=== PATIENT | male | born 1995 | race Caucasian/White ===

== ENCOUNTER 2017-06-06 10:11 | Emergency (ER) | payer OTHER ==
[~2017-06-06] VITALS: Ht 177.8 cm; Wt 89.8 kg
[2017-06-06 11:06] LABS: Albumin 4.4 g/dL (3.4-5.0); BUN/Creatinine Ratio 16.8; Calcium 9.4 mg/dL (8.5-10.1); Potassium 4.3 mmol/L (3.5-5.1)
[2017-06-06 11:09] LABS: Bilirubin, Total 1.2 mg/dL (0.2-1.0); Total Protein 8.2 g/dL (6.4-8.2)
[2017-06-06 11:17] LABS: Urine Bacteria NONE SEEN /hpf (None Seen); Urine Blood Negative /uL (Negative); Urine Mucus FEW (None Seen); Urine Specific Gravity 1.032 (1.001-1.035); Urine WBC 1 /hpf (0 - 3)
[2017-06-06 11:20] LABS: Alcohol, Urine < 3.0 mg/dL (0-5); Amphetamine Screen, Urine NEGATIVE (NEGATIVE); Barbiturate Scree,Urine NEGATIVE (NEGATIVE); Benzodiazephine Screen, Urine NEGATIVE (NEGATIVE); Cannabinoid Screen, Urine NEGATIVE (NEGATIVE); Cocaine Screen, Urine NEGATIVE (NEGATIVE); Opiate Scree,Urine NEGATIVE (NEGATIVE); Phencyclidine Screen, Urine NEGATIVE (NEGATIVE)
[2017-06-06 12:18] LABS: Basophils # (auto) 0 uL; Basophils % (auto) 0.4 % (0.0-2.0); Eosinophils # (auto) 0 uL; Eosinophils % (auto) 0.1 % (0.0-7.0); Hematocrit 48.2 % (41.0-53.0); Lymphocytes # (auto) 1.3 uL; Lymphocytes % (auto) 11.8 % (10.0-50.0); Mean Corpuscular Hemoglobin 29.7 pg (28.0-32.0); Mean Corpuscular Hgb Conc. 33.2 g/dL (32.0-36.0); Mean Corpuscular Volume 89.5 fL (80.0-100.0); Monocytes # (auto) 0.8 uL; Monocytes % (auto) 7.3 % (0.0-12.0); Neutrophils # (auto) 9.2 uL; Neutrophils % (auto) 80.4 % (37.0-80.0); Nucleated Red Blood Cells % 0.1 %; Platelet Count (auto) 255 10^3/uL (140-450); Red Blood Cells 5.38 10^6/uL (4.5-5.90); Red Cell Distribution Width 12.6 % (11.8-14.3); White Blood Cell 11.5 10^3/uL (4.4-10.8)
[2017-06-06 12:26] VITALS: BP 126/75
[2017-06-06] MEDS ORDERED: KETOROLAC TROMETH 60MG/2ML VIAL IM ONE (13:00)
== END 2017-06-06 13:24 | disposition home or self-care (01) ==
LOC: ER 10:13
DX: G44.209 Tension-type headache, unspecified, not intractable (principal); R42 Dizziness and giddiness; Z88.1 Allergy status to other antibiotic agents
CPT/HCPCS: 36415; 70450; 80053; 80307; 81001; 82962; 85025; 93005; 96372; 99285; J1885

== ENCOUNTER 2017-06-13 04:00 | Inpatient (IN) | payer OTHER ==
[~2017-06-13] VITALS: Ht 175.3 cm; Wt 72.3 kg
[2017-06-13] MEDS ORDERED: ONDANSETRON HCL 4 MG/2 ML VIAL ONE (05:09)
[2017-06-13 05:11] LABS: Basophils # (auto) 0 uL; Basophils % (auto) 0.4 % (0.0-2.0); Eosinophils # (auto) 0.1 uL; Eosinophils % (auto) 0.8 % (0.0-7.0); Hematocrit 46.4 % (41.0-53.0); Hemoglobin 16.1 g/dL (13.5-17.5); Lymphocytes # (auto) 1.3 uL; Lymphocytes % (auto) 14.3 % (10.0-50.0); Mean Corpuscular Hemoglobin 30.5 pg (28.0-32.0); Mean Corpuscular Hgb Conc. 34.6 g/dL (32.0-36.0); Mean Corpuscular Volume 88.1 fL (80.0-100.0); Monocytes # (auto) 0.4 uL; Monocytes % (auto) 4.8 % (0.0-12.0); Neutrophils # (auto) 7.3 uL; Neutrophils % (auto) 79.7 % (37.0-80.0); Nucleated Red Blood Cells % 0.1 %; Platelet Count (auto) 255 10^3/uL (140-450); Red Blood Cells 5.26 10^6/uL (4.5-5.90); Red Cell Distribution Width 12.1 % (11.8-14.3); White Blood Cell 9.1 10^3/uL (4.4-10.8)
[2017-06-13] MEDS ORDERED: ONDANSETRON HCL 4 MG/2 ML VIAL IV ONE ×3 (05:15→21:15)
[2017-06-13] MEDS ORDERED: SODIUM CHLORIDE 0.9% 1,000 ML IV ONE (05:15)
[2017-06-13 05:25] LABS: INR 0.97 (0.9-1.15); Prothrombin Time 10.6 sec (9.37-12.3)
[2017-06-13 05:32] LABS: Alanine Aminotransferase 61 U/L (16-61); Albumin 4.4 g/dL (3.4-5.0); Alkaline Phosphatase 61 U/L (45-117); Anion Gap 12 (5-15); Aspartate Aminotransferase 29 U/L (15-37); BUN/Creatinine Ratio 14.3; Bilirubin, Total 0.7 mg/dL (0.2-1.0); Blood Alcohol < 3.0 mg/dL (0-5); Blood Urea Nitrogen 15 mg/dL (7-18); Calcium 9.9 mg/dL (8.5-10.1); Carbon Dioxide 24 mmol/L (21-32); Chloride 104 mmol/L (98-107); GFR African American 113 mL/min; GFR Non-African American 93 mL/min; Glucose 113 mg/dL (74-106); Magnesium 2.4 mg/dL (1.6-2.6); Sodium 140 mmol/L (136-145); Total Protein 8.1 g/dL (6.4-8.2)
[2017-06-13] MEDS ORDERED: SODIUM CHLORIDE 0.9% 1,000 ML IVB ONE (07:51)
[2017-06-13] MEDS ORDERED: LORazepam 2MG/ML-1ML VIAL IV ONE (08:00)
[2017-06-13 08:58] LABS: Urine Bacteria NONE SEEN /hpf (None Seen); Urine Blood Negative /uL (Negative); Urine Mucus FEW (None Seen); Urine Specific Gravity 1.018 (1.001-1.035); Urine WBC 4 /hpf (0 - 3)
[2017-06-13] MEDS ORDERED: MORPHINE SULFATE 4 MG/ML SYR/VIAL IV ONE ×3 (09:00→21:15)
[2017-06-13 09:17] LABS: Alcohol, Urine < 3.0 mg/dL (0-5); Amphetamine Screen, Urine NEGATIVE (NEGATIVE); Barbiturate Scree,Urine POSITIVE (NEGATIVE); Benzodiazephine Screen, Urine NEGATIVE (NEGATIVE); Cannabinoid Screen, Urine NEGATIVE (NEGATIVE); Cocaine Screen, Urine NEGATIVE (NEGATIVE); Opiate Scree,Urine NEGATIVE (NEGATIVE); Phencyclidine Screen, Urine NEGATIVE (NEGATIVE)
[2017-06-13] MEDS ORDERED: ONDANSETRON HCL 4 MG/2 ML VIAL IV PRN (20:45)
[2017-06-13] MEDS ORDERED: TEMAZEPAM 15 MG CAP PO PRN (20:45)
[2017-06-13] MEDS ORDERED: SUMAtriptan SUCCINATE 25 MG TAB PO ONE ×2 (21:15→22:15)
[2017-06-13 22:25] VITALS: BP 118/67
[2017-06-13 22:30] VITALS: BP 118/67
[2017-06-13] MEDS: FAMOTIDINE 20 MG TAB PO SCH (22:31)
[2017-06-14] MEDS ORDERED: VALA500T33 PO (00:47)
[2017-06-14] MEDS ORDERED: HYDR-4683 PO (00:47)
[2017-06-14 05:00] VITALS: BP 116/72
[2017-06-14 07:28] LABS: Albumin 3.8 g/dL (3.4-5.0); BUN/Creatinine Ratio 10.2; Bilirubin, Total 0.8 mg/dL (0.2-1.0); Calcium 8.9 mg/dL (8.5-10.1); Potassium 3.9 mmol/L (3.5-5.1); Total Protein 7.2 g/dL (6.4-8.2)
[2017-06-14 07:30] LABS: Basophils # (auto) 0 uL; Basophils % (auto) 0.6 % (0.0-2.0); Eosinophils # (auto) 0.1 uL; Eosinophils % (auto) 0.9 % (0.0-7.0); Hematocrit 43.5 % (41.0-53.0); Hemoglobin 14.8 g/dL (13.5-17.5); Lymphocytes # (auto) 1.1 uL; Lymphocytes % (auto) 17.8 % (10.0-50.0); Mean Corpuscular Hemoglobin 30.2 pg (28.0-32.0); Mean Corpuscular Hgb Conc. 34.1 g/dL (32.0-36.0); Mean Corpuscular Volume 88.5 fL (80.0-100.0); Monocytes # (auto) 0.7 uL; Neutrophils # (auto) 4.2 uL; Neutrophils % (auto) 68.7 % (37.0-80.0); Nucleated Red Blood Cells % 0.1 %; Platelet Count (auto) 215 10^3/uL (140-450); Red Blood Cells 4.91 10^6/uL (4.5-5.90); White Blood Cell 6.1 10^3/uL (4.4-10.8)
[2017-06-14] MEDS: ACETAMINOPHEN 325 MG TAB PO PRN ×2 (08:31→19:38)
[2017-06-14 09:00] VITALS: BP 113/67
[2017-06-14] MEDS: FAMOTIDINE 20 MG TAB PO SCH (10:31)
[2017-06-14 13:00] VITALS: BP 122/60
[2017-06-14 17:00] VITALS: BP 117/61
[2017-06-14 20:28] VITALS: BP 116/72
== END 2017-06-14 21:35 | disposition home or self-care (01) | DRG 72 ==
LOC: ER 04:02 → OVERFLOW 04:03 → WEST WING 22:25
PROVIDERS: ADMIT Nurse Practitioner; ATTEND Internal Medicine
DX: G93.41 Metabolic encephalopathy (principal); F17.200 Nicotine dependence, unspecified, uncomplicated; Z80.8 Family history of malignant neoplasm of other organs or systems; Z81.8 Family history of other mental and behavioral disorders
CPT/HCPCS: 36415; 70450; 74176; 80053; 80307; 80320; 81001; 83735; 84484; 85025; 85610; 85730; 87081; 93005; 94761; 95819; 96361; 96374; 96375; 96376; J2405